=== PATIENT | female | born 2005 | race Caucasian/White ===

== ENCOUNTER 2025-07-23 10:32 | Inpatient (IN) | payer MEDICAID ==
[2025-07-23 11:19] VITALS: BMI 26.2
[2025-07-23] MEDS ORDERED: Ondansetron PF 4 MG/2 ML Vial IVP PRN ×3 (11:40→17:57)
[2025-07-23] MEDS: Oxytocin 30 units/NS 500 ML 500 ML IV SCH ×2 (12:25→17:54)
[2025-07-23 12:45] LABS: ALT (SGPT) 14 U/L (Less than 34); AST (SGOT) 23 U/L (11-34); Albumin 2.6 g/dL (3.1-4.5); Alkaline Phosphatase 320 U/L (40-110); Anion Gap 14 mmol/L (10-20); BUN (Urea Nitrogen) 11 mg/dL (7.0-18.7); Bilirubin, Total 0.1 mg/dL (0.3-1.2); Calc. Creatinine Clearance 131 mL/min (70-130); Calcium 8.8 mg/dL (7.8-10.44); Carbon Dioxide 21 mmol/L (22-29); Chloride 105 mmol/L (98-107); Globulin 4.0 g/dL (2.4-3.5); Glucose 84 mg/dL (70-105); Potassium 4.3 mmol/L (3.5-5.1); Sodium 136 mmol/L (136-145)
[2025-07-23 12:59] LABS: Hematocrit 38.8 % (34.9-44.5); Hemoglobin 12.3 g/dL (12.0-15.5); Mean Corpuscular Hemoglobin 26.2 pg (27.0-33.0); Mean Corpuscular Volume 82.6 fL (81.6-98.3); Platelet Count 246 10x3/uL (150-450); Red Blood Cell (RBC) Count 4.70 10x6/uL (3.90-5.03); White Blood Cell (WBC) Count 11.84 10x3/uL (3.5-10.5)
[2025-07-23 13:03] LABS: Syphilis Antibody Index 0.05 S/CO (<1.00 Non-Reactive)
[2025-07-23 13:04] LABS: Hep B Surf Ag - L&D Non-Reactive S/CO (NonReactive)
[2025-07-23] MEDS: hydrALAZINE 20 MG/ML VIAL SLOW IVP PRN (13:36)
[2025-07-23] MEDS: fentaNYL/Ropivacaine Epidural 100 ML ONE (14:00)
[2025-07-23] MEDS: Lidocaine 1% (PF) 30 ML VIAL SC PRN (17:29)
[2025-07-23] MEDS ORDERED: Boostrix 0.5 ML (Tdap) VIAL (>/=7 yrs of age) IM ONE (17:41)
[2025-07-23] MEDS ORDERED: Milk Of Magnesia 30 ML UDCUP PO PRN (17:41)
[2025-07-23] MEDS ORDERED: Bisacodyl 10 MG SUPP PR PRN (17:41)
[2025-07-23] MEDS ORDERED: Oxytocin 30 units/NS 500 ML 500 ML IV SCH (17:45)
[2025-07-23] MEDS ORDERED: diphenhydrAMINE 50 MG/ML VIAL IVP PRN (17:57)
[2025-07-23] MEDS ORDERED: Acetaminophen 325 MG TAB PO PRN (17:57)
[2025-07-23] MEDS ORDERED: fentaNYL 2 mcg/Ropivacaine 0.2% Epidural 100 ML CADD EPIDURAL SCH (18:00)
[2025-07-23] MEDS ORDERED: Communication Order-Pharmacy FS SCH (18:00)
[2025-07-23] MEDS: NIFEdipine XL 30 MG ER.TAB PO SCH (20:28)
[2025-07-23] MEDS ORDERED: HYDROcodone/Acetaminophen 5/325 mg Tablet PO PRN (20:40)
[2025-07-23] MEDS: Ibuprofen 800 MG TAB PO SCH (22:21)
[2025-07-24] MEDS: NIFEdipine XL 30 MG ER.TAB PO SCH (09:15)
[2025-07-24] MEDS: Ferrous Sulfate 325 MG TAB PO SCH (09:15)
[2025-07-24 12:06] LABS: Chlam.trachomatis by PCR,Urine Not Detected (NotDetected)
[2025-07-24] MEDS: hydrALAZINE 20 MG/ML VIAL SLOW IVP PRN (12:40)
[2025-07-24 16:11] VITALS: BP 148/96; TEMP 98.5
== END 2025-07-24 19:18 | disposition home or self-care (01) | DRG 807 ==
LOC: CSHLD 10:32 → CSHPP 20:10
PROVIDERS: ADMIT Obstetrics & Gynecology; ATTEND Obstetrics & Gynecology
PROC: 10E0XZZ Delivery of Products of Conception, External Approach (ICD-10-PCS; principal; 2025-07-23)
DX: O13.4 Gestational [pregnancy-induced] hypertension without significant proteinuria, complicating childbirth (principal); Z37.0 Single live birth; O70.0 First degree perineal laceration during delivery; Z3A.38 38 weeks gestation of pregnancy
CPT/HCPCS: 51702; 80053; 85027; 86780; 86850; 86870; 86900; 86901; 87340; 87491; J0360; J2590